=== PATIENT | male | born 1955 | race African-American/Black ===

== ENCOUNTER 2017-08-13 13:17 | Inpatient (IN) | payer OTHER ==
[2017-08-13 14:28] VITALS: BMI 25.0
--- NOTE | 2017-08-13 17:05 | HP ---
CIWA Score - CIWA Score Nausea/Vomitin-Mild Nausea/No Vomiting Muscle Tremors: 4-Moderate,w/Arms Extend Anxiety: 4-Mod. Anxious/Guarded Agitation: 4-Moderately Restless Paroxysmal Sweats: 1-Minimal Palms Moist Orientation: 2-Disoriented Date<2 days Tacttile Disturbances: 1-Very Mild Itch/Numbness Auditory Disturbances: 0-None Visual Disturbances: 0-None Headache: 0-None Present CIWA-Ar Total Score: 17 Admission ROS S - HPI Chief Complaint: withdrawal sx provider called [phone] for antivirus medication delivery as per pharmacist that long distance can not be done case discuss with the patient that assistance living facility may possible case discussed with part care pharmacist that due to compliance that the patient may continue using part care supply Allergies/Adverse Reactions: Allergies Allergy/AdvReac Type Severity Reaction Status Date / Time No Known Allergies Allergy Verified 08/13/17 14:57 History of Present Illness: 61 years old male wtih long history of alcohol nicotine dependence on methadone 160 mg po daily has hypertension, diabetes hiv positive ppd asthma and depression is admitted to detox Exam Limitations: No Limitations - Ebola screening Have you traveled outside of the country in the last 21 days: No Have you had contact with anyone from an Ebola affected area: No Have you been sick,other than usual withdrawal symptoms: No Do you have a fever: No - Review of Systems Constitutional: Changes in sleep, Weight Stable EENT: reports: Cataracts (both eyes), Blurred Vision (glaucoma both eyes), Dental Problems (multiple teeth missing) Respiratory: reports: No Symptoms reported Cardiac: reports: No Symptoms Reported GI: reports: Nausea, Poor Fluid Intake, Abdominal cramping : reports: No Symptoms Reported Musculoskeletal: reports: Joint Pain (left hip feet) Integumentary: reports: Other (calluses both feet has appointment with his manager commission) Neuro: reports: Tremors Endocrine: reports: No Symptoms Reported Hematology: reports: No Symptoms Reported Psychiatric: reports: Judgement Intact, Anxious, Depressed Other Systems: Reviewed and Negative Patient History - Patient Medical History Hx Anemia: No Hx Asthma: Yes Hx Chronic Obstructive Pulmonary Disease (COPD): No Hx Cancer: No Hx Cardiac Disorders: No Hx Congestive Heart Failure: No Hx Hypertension: Yes Hx Hypercholesterolemia: Yes Hx Pacemaker: No HX Cerebrovascular Accident: No Hx Seizures: No Hx Dementia: No Hx Diabetes: Yes Hx Gastrointestinal Disorders: No Hx Liver Disease: No Hx Genitourinary Disorders: No Hx Sexually Transmitted Disorders: Yes (GC at young age) Hx Renal Disease (ESRD): No Hx Thyroid Disease: No Hx Human Immunodeficiency Virus (HIV): Yes (1988) Hx Hepatitis C: Yes (treated) Hx Depression: Yes Hx Suicide Attempt: No Hx Bipolar Disorder: No Hx Schizophrenia: No - Patient Surgical History Past Surgical History: Yes Hx Neurologic Surgery: No Hx Cataract Extraction: No Hx Cardiac Surgery: No Hx Lung Surgery: No Hx Breast Surgery: No Hx Breast Biopsy: No Hx Abdominal Surgery: Yes (stomach ulcer 1979) Hx Appendectomy: No Hx Cholecystectomy: No Hx Genitourinary Surgery: No Hx Orthopedic Surgery: Yes (lt hip replacement-1980) Anesthesia Reaction: No - PPD History Previous Implant?: Yes Documented Results: Positive w/o proof Implanted On Prior [facility] Admission?: No PPD to be Administered?: No - Smoking Cessation Smoking history: Current every day smoker Have you smoked in the past 12 months: Yes Aproximately how many cigarettes per day: 10 Cigars Per Day: 0 Hx Chewing Tobacco Use: No Initiated information on smoking cessation: Yes 'Breaking Loose' booklet given: 08/13/17 - Substance & Tx. History Hx Alcohol Use: Yes Hx Substance Use: No Substance Use Type: Alcohol, Heroin Hx Substance Use Treatment: Yes (05/2017 ) - Substances Abused Alcohol Route: Oral Frequency: Daily Amount used: vodka(1/5) Age of first use: 14 Date of Last Use: 08/13/17 Family Disease History - Family Disease History Family Disease History: Diabetes: Mother, Sister, Heart Disease: Father ( ), Mother, Respiratory: Mother, Brother, Other: Father Admission Physical Exam S - Vital Signs Vital Signs: Vital Signs - 24 hr 08/13/17 14:24 Temperature 98.3 F Pulse Rate 81 Respiratory 18 Rate Blood Pressure 160/131 - Physical General Appearance: Yes: Appropriately Dressed, Moderate Distress, Tremorous, Irritable, Sweating, Anxious HEENTM: Yes: Hearing grossly Normal, Normal ENT Inspection, Normocephalic, Normal Voice Respiratory: Yes: Chest Non-Tender, Lungs Clear, Normal Breath Sounds, No Respiratory Distress, No Accessory Muscle Use Neck: Yes: Supple, Trachea in good position Breast: Yes: Breasts Symetrical Cardiology: Yes: Regular Rhythm, Regular Rate, S1, S2 Abdominal: Yes: Normal Bowel Sounds, Non Tender, Soft Genitourinary: Yes: Within Normal Limits Back: Yes: Normal Inspection Musculoskeletal: Yes: Gait Steady (cane), Back pain, Muscle Pain (left hip) Extremities: Yes: Normal Inspection, Normal Range of Motion, Non-Tender, Tremors Neurological: Yes: Alert, Motor Strength 5/5, Normal Response, Depressed Affect Integumentary: Yes: Warm Lymphatic: Yes: Within Normal Limits - Diagnostic (1) Alcohol dependence with uncomplicated withdrawal Current Visit: Yes Status: Acute (2) Asthma Current Visit: Yes Status: Chronic Qualifiers: Asthma severity: mild Asthma persistence: intermittent Asthma complication type: with status asthmaticus Qualified Code(s): J45.22 - Mild intermittent asthma with status asthmaticus (3) Nicotine dependence Current Visit: Yes Status: Acute Qualifiers: Nicotine product type: cigarettes Substance use status: in withdrawal Qualified Code(s): F17.213 - Nicotine dependence, cigarettes, with withdrawal (4) Methadone maintenance therapy patient Current Visit: Yes Status: Chronic Comment: 160 mg po daily verification pending (5) Hypertension Current Visit: Yes Status: Chronic Qualifiers: Hypertension type: essential hypertension Qualified Code(s): I10 - Essential (primary) hypertension (6) Diabetes mellitus type II, controlled Current Visit: Yes Status: Chronic Qualifiers: Diabetes mellitus complication status: with diabetic arthropathy Diabetes mellitus terminal gauger insulin use: with [facility] use (7) HIV (human immunodeficiency virus infection) Current Visit: Yes Status: Chronic Comment: no medication with the patient call (8) Glaucoma Current Visit: Yes Status: Acute Qualifiers: Glaucoma type: unspecified Laterality: bilateral Qualified Code(s): H40.9 - Unspecified glaucoma (9) Depression (emotion) Current Visit: Yes Status: Suspected Qualifiers: Depression Type: dysthymia Qualified Code(s): F34.1 - Dysthymic disorder (10) Hyperlipidemia Current Visit: Yes Status: Chronic Qualifiers: Hyperlipidemia type: pure hypercholesterolemia Qualified Code(s): E78.00 - Pure hypercholesterolemia, unspecified; E78.0 - Pure hypercholesterolemia Cleared for Admission [facility] - Detox or Rehab S Level of Care: Medically Managed Detox Regimen/Protocol: Librium S Breath Alcohol Content Breath Alcohol Content: 0 Urine Drug Screen - Results Drug Screen Negative: No Urine Drug Screen Results: BZO-Benzodiazepines, MTD-Methadone
[2017-08-13] MEDS ORDERED: P-EPHED 60MG/TRIPROLIDI 2.5MG TABLET PO PRN (17:13)
[2017-08-13] MEDS ORDERED: LOPERAMIDE HCL 2 MG CAPSULE PO PRN (17:13)
[2017-08-13] MEDS ORDERED: chlordiazePOXIDE HCL 25 MG CAPSULE PO PRN (17:13)
[2017-08-13] MEDS ORDERED: MAG HYDROX/AL HYDROX/SIMETH 30 ML UNIT-DOSE CUP PO PRN (17:13)
[2017-08-13] MEDS ORDERED: ACETAMINOPHEN 325 MG TABLET (FP) PO PRN (17:13)
[2017-08-13] MEDS ORDERED: guaiFENesin/D-METHORPHAN HB 10 ML UNIT-DOSE CUPS PO PRN (17:13)
[2017-08-13] MEDS ORDERED: IBUPROFEN 400 MG TABLET (FP) PO PRN (17:13)
[2017-08-13] MEDS ORDERED: NICOTINE POLACRILEX 2 MG GUM BC PRN (17:13)
[2017-08-13] MEDS ORDERED: MAGNESIUM CITRATE 300 ML BOTTLE PO PRN (17:13)
[2017-08-13] MEDS ORDERED: MENTHOL/PHENOL 1 EACH UD MM PRN (17:13)
[2017-08-13] MEDS ORDERED: MAGNESIUM HYDROX 2400MG/30ML ORAL SUSPENSION 30 ML CUP PO PRN (17:13)
[2017-08-13] MEDS ORDERED: ALBUTEROL SO4 18 GM HFA INHALER IH PRN (17:38)
[2017-08-13] MEDS: LISINOPRIL 20 MG TABLET (FP) PO SCH (19:39)
[2017-08-13] MEDS: THIAMINE HCL 100 MG TABLET (FP) PO SCH (22:31)
[2017-08-13] MEDS: ATORVASTATIN CA 40 MG TABLET (FP) PO SCH (22:31)
[2017-08-13] MEDS: INSULIN DETEMIR 100 UNITS/ML MDV SQ SCH (22:31)
[2017-08-13] MEDS: chlordiazePOXIDE HCL 25 MG CAPSULE PO SCH (22:31)
[2017-08-13] MEDS: LATANOPROST 0.005% OPHTH SOLN 2.5ML BOTTLE OU SCH (22:32)
[2017-08-13] MEDS: INSULIN SLIDING SCALE (NOVOLOG) 1 VIAL SQ SCH (22:32)
[2017-08-13 23:05] LABS: URINE APPEARANCE CLEAR; URINE BILIRUBIN NEGATIVE (NEGATIVE); URINE BLOOD NEGATIVE (NEGATIVE); URINE COLOR YELLOW; URINE GLUCOSE (UA) NEGATIVE (NEGATIVE); URINE KETONE NEGATIVE (NEGATIVE); URINE LEUK ESTERASE TRACE (NEGATIVE); URINE NITRITE NEGATIVE (NEGATIVE); URINE UROBILINOGEN NEGATIVE mg/dL (0.2-1.0)
[2017-08-13 23:11] LABS: URINE PROTEIN 2+ (NEGATIVE)
[2017-08-14 00:15] LABS: URINE HYALINE CAST 1 /lpf
[2017-08-14] MEDS: chlordiazePOXIDE HCL 25 MG CAPSULE PO SCH ×4 (05:47→22:36)
[2017-08-14] MEDS: metFORMIN HCL 500 MG TABLET (FP) PO SCH ×2 (06:17→17:40)
[2017-08-14] MEDS: INSULIN SLIDING SCALE (NOVOLOG) 1 VIAL SQ SCH ×4 (06:18→23:16)
[2017-08-14] MEDS ORDERED: METHADONE HCL 40 MG DISPERSABLE TABLET PO ONE (08:45)
[2017-08-14] MEDS ORDERED: METHADONE HCL 40 MG DISPERSABLE TABLET ONE (08:51)
[2017-08-14] MEDS: INSULIN (NOVOLOG MIX 70/30) 100 UNITS/ML MDV SQ SCH ×2 (08:59→18:09)
[2017-08-14 10:04] LABS: HEMATOCRIT 41.3 % (35.4-49); HEMOGLOBIN 13.2 GM/dL (11.7-16.9); MCH 30.9 pg (25.7-33.7); MCHC 31.8 g/dl (32.0-35.9); PLATELET COUNT 178 K/MM3 (134-434); RBC 4.26 M/mm3 (4.00-5.60); RDW 15.1 % (11.9-15.9); WHITE BLOOD COUNT 3.8 K/mm3 (4.0-10.0)
[2017-08-14] MEDS: EMTRICITABINE/TENOFOV ALAFENAM (DESCOVY) TABLET PO SCH (10:12)
[2017-08-14] MEDS: LISINOPRIL 20 MG TABLET (FP) PO SCH (10:12)
[2017-08-14] MEDS: DOLUTEGRAVIR SODIUM 50 MG TABLET PO SCH (10:12)
[2017-08-14] MEDS: PRENATAL VITAMINS W/ FOLIC ACID TABLET (FP) PO SCH (10:13)
[2017-08-14] MEDS: NICOTINE 14 MG/24 HOURS TOPICAL PATCH TD SCH (10:13)
[2017-08-14 10:18] LABS: ANION GAP 5 (8-16); BLOOD UREA NITROGEN 18 mg/dL (7-18); CALCIUM 8.4 mg/dL (8.5-10.1); CHLORIDE 101 mmol/L (98-107); CO2 32 mmol/L (21-32); GLUCOSE,RANDOM 85 mg/dL (74-106); SODIUM 138 mmol/L (136-145)
[2017-08-14 10:21] LABS: ALK PHOS 132 U/L (45-117); BILIRUBIN,TOTAL 0.9 mg/dL (0.2-1.0); SGOT/AST 51 U/L (15-37); SGPT/ALT 48 U/L (12-78); TOT PROT 6.6 g/dl (6.4-8.2)
--- NOTE | 2017-08-14 11:03 | CONSULT ---
[facility] Psychiatric Consult - Data Date of interview: 08/14/17 Admission source: [facility] Identifying data: Pt. is a 61 year old male, single, without kids and on disability. This is patient's first admission to [facility]. Pt. admitted to for alcohol dependence. Substance Abuse History: Following information confirmed with Mr. Serrano: Smoking Cessation. Smoking history: Current every day smoker. Have you smoked in the past 12 months: Yes. Aproximately how many cigarettes per day: 10. Cigars Per Day: 0. Hx Chewing Tobacco Use: No. Initiated information on smoking cessation: Yes. 'Breaking Loose' booklet given: 08/13/17. - Substance & Tx. History. Hx Alcohol Use: Yes. Hx Substance Use: No. Substance Use Type : Alcohol, Heroin. Hx Substance Use Treatment: Yes (05/2017 ). - Substances Abused. Alcohol. Route: Oral. Frequency: Daily. Amount used: vodka(08/07). Age of first use: 14. Date of Last Use: 08/13/17 Medical History: Asthma, hypertension, hypercholesterolemia, diabetes, Hep C ( treated), HIV, Hip replacement (1980), Abdominal surgery for stomach ulcer. Psychiatric History: Pt. denies h/o psychiatric hospitalizations, suicide attempts, and OPC. Physical/Sexual Abuse/Trauma History: Denies. Mental Status Exam - Mental Status Exam Alert and Oriented to: Time, Place, Person Cognitive Function: Good Patient Appearance: Well Groomed Mood: Hopeful Affect: Appropriate Patient Behavior: Appropriate, Cooperative Speech Pattern: Clear, Appropriate Voice Loudness: Normal Thought Process: Goal Oriented Thought Disorder: Not Present Hallucinations: Denies Suicidal Ideation: Denies Homicidal Ideation: Denies Insight/Judgement: Poor Sleep: Fair Appetite: Good, Fair Muscle strength/Tone: Normal Gait/Station: Other (Pt. ambulates with a cane.) Psychiatric Findings - Problem List ([place] 1, 2,3) (1) Alcohol dependence with uncomplicated withdrawal Current Visit: Yes Status: Acute (2) Nicotine dependence Current Visit: Yes Status: Acute Qualifiers: Nicotine product type: cigarettes Substance use status: in withdrawal Qualified Code(s): F17.213 - Nicotine dependence, cigarettes, with withdrawal (3) Methadone maintenance therapy patient Current Visit: Yes Status: Chronic Comment: 160 mg po daily verification pending - Initial Treatment Plan Initial Treatment Plan: Psychoeducation provided. Detoxification in progress. Observation.
--- NOTE | 2017-08-14 12:35 | PN ---
S CIWA - CIWA Score Nausea/Vomitin-No Nausea/No Vomiting Muscle Tremors: 4-Moderate,w/Arms Extend Anxiety: 3 Agitation: 3 Paroxysmal Sweats: 3 Orientation: 0-Oriented Tacttile Disturbances: 0-None Auditory Disturbances: 0-None Visual Disturbances: 0-None Headache: 0-None Present CIWA-Ar Total Score: 13 S Progress Note (SOAP) Subjective: shakes sweats interrupted sleep body aches agitation Objective: 08/14/17 12:35 Vital Signs Temperature 98.0 F 08/14/17 10:36 Pulse Rate 67 08/14/17 10:36 Respiratory Rate 18 08/14/17 10:36 Blood Pressure 141/77 08/14/17 10:36 O2 Sat by Pulse Oximetry (%) Laboratory Tests 08/13/17 08/13/17 08/14/17 21:00 22:30 05:46 WBC RBC Hgb Hct MCV MCH MCHC RDW Plt Count MPV Sodium Potassium Chloride Carbon Dioxide Anion Gap BUN Creatinine Creat Clearance w eGFR POC Glucometer 156 71 Random Glucose Calcium Total Bilirubin AST ALT Alkaline Phosphatase Total Protein Albumin Urine Color Yellow Urine Appearance Clear Urine pH 7.0 Ur Specific [place] 1.018 Urine Protein 2+ H Urine Glucose (UA) Negative Urine Ketones Negative Urine Blood Negative Urine Nitrite Negative Urine Bilirubin Negative Urine Urobilinogen Negative Ur Leukocyte Esterase Trace Urine WBC (Auto) <1 Urine RBC (Auto) 1 Hyaline Casts 1 08/14/17 08/14/17 08/14/17 07:30 07:30 08:56 WBC 3.8 L RBC 4.26 Hgb 13.2 Hct 41.3 MCV 97.0 H MCH 30.9 MCHC 31.8 L RDW 15.1 Plt Count 178 MPV 9.0 Sodium 138 Potassium 4.0 Chloride 101 Carbon Dioxide 32 Anion Gap 5 L BUN 18 Creatinine 1.0 Creat Clearance w eGFR > 60 POC Glucometer 135 Random Glucose 85 Calcium 8.4 L Total Bilirubin 0.9 AST 51 H ALT 48 Alkaline Phosphatase 132 H Total Protein 6.6 Albumin 3.0 L Urine Color Urine Appearance Urine pH Ur Specific [place] Urine Protein Urine Glucose (UA) Urine Ketones Urine Blood Urine Nitrite Urine Bilirubin Urine Urobilinogen Ur Leukocyte Esterase Urine WBC (Auto) Urine RBC (Auto) Hyaline Casts 08/14/17 11:41 WBC RBC Hgb Hct MCV MCH MCHC RDW Plt Count MPV Sodium Potassium Chloride Carbon Dioxide Anion Gap BUN Creatinine Creat Clearance w eGFR POC Glucometer 75 Random Glucose Calcium Total Bilirubin AST ALT Alkaline Phosphatase Total Protein Albumin Urine Color Urine Appearance Urine pH Ur Specific [place] Urine Protein Urine Glucose (UA) Urine Ketones Urine Blood Urine Nitrite Urine Bilirubin Urine Urobilinogen Ur Leukocyte Esterase Urine WBC (Auto) Urine RBC (Auto) Hyaline Casts aaox3 ambulating no acute distress Assessment: 08/14/17 12:42 withdrawal sx Plan: continue detox increase fluids
[2017-08-14] MEDS ORDERED: INSULIN (NOVOLOG MIX 70/30) 100 UNITS/ML MDV SQ ONE (16:54)
[2017-08-14] MEDS: THIAMINE HCL 100 MG TABLET (FP) PO SCH (22:35)
[2017-08-14] MEDS: LATANOPROST 0.005% OPHTH SOLN 2.5ML BOTTLE OU SCH (22:35)
[2017-08-14] MEDS: ATORVASTATIN CA 40 MG TABLET (FP) PO SCH (22:35)
[2017-08-14] MEDS: INSULIN DETEMIR 100 UNITS/ML MDV SQ SCH (22:35)
[2017-08-15] MEDS: METHADONE HCL 40 MG DISPERSABLE TABLET PO SCH (06:03)
[2017-08-15] MEDS: chlordiazePOXIDE HCL 25 MG CAPSULE PO SCH ×3 (06:03→17:31)
[2017-08-15] MEDS: INSULIN (NOVOLOG MIX 70/30) 100 UNITS/ML MDV SQ SCH ×2 (08:47→17:31)
[2017-08-15] MEDS: INSULIN SLIDING SCALE (NOVOLOG) 1 VIAL SQ SCH ×4 (08:47→21:47)
[2017-08-15] MEDS: metFORMIN HCL 500 MG TABLET (FP) PO SCH ×2 (11:27→17:31)
[2017-08-15] MEDS: PRENATAL VITAMINS W/ FOLIC ACID TABLET (FP) PO SCH (11:27)
[2017-08-15] MEDS: LISINOPRIL 20 MG TABLET (FP) PO SCH (11:27)
[2017-08-15] MEDS: EMTRICITABINE/TENOFOV ALAFENAM (DESCOVY) TABLET PO SCH (11:57)
[2017-08-15] MEDS: DOLUTEGRAVIR SODIUM 50 MG TABLET PO SCH (11:57)
--- NOTE | 2017-08-15 11:58 | PN ---
S CIWA - CIWA Score Nausea/Vomitin Muscle Tremors: 3 Anxiety: 3 Agitation: 3 Paroxysmal Sweats: 2 Orientation: 0-Oriented Tacttile Disturbances: 0-None Auditory Disturbances: 0-None Visual Disturbances: 0-None Headache: 0-None Present CIWA-Ar Total Score: 13 [facility] Progress Note (SOAP) Subjective: tremors interupted sleep anxious Objective: 08/15/17 11:54 Last Vital Signs Temp Pulse Resp BP Pulse Ox 98.1 F 66 18 146/96 08/15/17 10:33 08/15/17 10:33 08/15/17 10:33 08/15/17 10:33 Laboratory Last Values WBC 3.8 K/mm3 (4.0-10.0) L 08/14/17 07:30 RBC 4.26 M/mm3 (4.00-5.60) 08/14/17 07:30 Hgb 13.2 GM/dL (11.7-16.9) 08/14/17 07:30 Hct 41.3 % (35.4-49) 08/14/17 07:30 MCV 97.0 fl (80-96) H 08/14/17 07:30 MCH 30.9 pg (25.7-33.7) 08/14/17 07:30 MCHC 31.8 g/dl (32.0-35.9) L 08/14/17 07:30 RDW 15.1 % (11.9-15.9) 08/14/17 07:30 Plt Count 178 K/MM3 (134-434) 08/14/17 07:30 MPV 9.0 fl (7.5-11.1) 08/14/17 07:30 Sodium 138 mmol/L (136-145) 08/14/17 07:30 Potassium 4.0 mmol/L (3.5-5.1) 08/14/17 07:30 Chloride 101 mmol/L (98-107) 08/14/17 07:30 Carbon Dioxide 32 mmol/L (21-32) 08/14/17 07:30 Anion Gap 5 (8-16) L 08/14/17 07:30 BUN 18 mg/dL (7-18) 08/14/17 07:30 Creatinine 1.0 mg/dL (0.7-1.3) 08/14/17 07:30 Creat Clearance w eGFR > 60 (>60) 08/14/17 07:30 POC Glucometer 96 UNITS (80-120) 08/15/17 08:45 Random Glucose 85 mg/dL (74-106) 08/14/17 07:30 Calcium 8.4 mg/dL (8.5-10.1) L 08/14/17 07:30 Total Bilirubin 0.9 mg/dL (0.2-1.0) 08/14/17 07:30 AST 51 U/L (15-37) H 08/14/17 07:30 ALT 48 U/L (12-78) 08/14/17 07:30 Alkaline Phosphatase 132 U/L (45-117) H 08/14/17 07:30 Total Protein 6.6 g/dl (6.4-8.2) 08/14/17 07:30 Albumin 3.0 g/dl (3.4-5.0) L 08/14/17 07:30 Urine Color Yellow 08/13/17 21:00 Urine Appearance Clear 08/13/17 21:00 Urine pH 7.0 (5.0-8.0) 08/13/17 21:00 Ur Specific [place] 1.018 (1.001-1.035) 08/13/17 21:00 Urine Protein 2+ (NEGATIVE) H 08/13/17 21:00 Urine Glucose (UA) Negative (NEGATIVE) 08/13/17 21:00 Urine Ketones Negative (NEGATIVE) 08/13/17 21:00 Urine Blood Negative (NEGATIVE) 08/13/17 21:00 Urine Nitrite Negative (NEGATIVE) 08/13/17 21:00 Urine Bilirubin Negative (NEGATIVE) 08/13/17 21:00 Urine Urobilinogen Negative mg/dL (0.2-1.0) 08/13/17 21:00 Ur Leukocyte Esterase Trace (NEGATIVE) 08/13/17 21:00 Urine WBC (Auto) <1 /hpf (3-5) 08/13/17 21:00 Urine RBC (Auto) 1 /hpf (0-3) 08/13/17 21:00 Hyaline Casts 1 /lpf 08/13/17 21:00 RPR Titer Nonreactive (NONREACTIVE) 08/14/17 07:30 labs noted, POC glucose 96; a.m dose of insulin held Assessment: 08/15/17 11:56 withdrawal symptoms no signs and symptoms of hypo/hyperglycemia no acute distress noted Plan: continue detox resume DM meds as ordered
[2017-08-15] MEDS ORDERED: INSULIN (NOVOLOG) ASPART 100 UNITS/ML 10ML VIAL ONE (12:01)
[2017-08-15] MEDS: NICOTINE 14 MG/24 HOURS TOPICAL PATCH TD SCH (12:04)
--- NOTE | 2017-08-15 17:11 | EKG ---
Test Reason : Blood Pressure : / mmHG Vent. Rate : 066 BPM Atrial Rate : 066 BPM P-R Int : 174 ms QRS Dur : 096 ms QT Int : 440 ms P-R-T Axes : 060 018 065 degrees QTc Int : 461 ms NORMAL SINUS RHYTHM NONSPECIFIC T WAVE ABNORMALITY ABNORMAL ECG NO PREVIOUS ECGS AVAILABLE Confirmed by KRISTI FRY MD ([id number]) on 08/15/2017 5:11:27 PM Referred By: Confirmed By:KRISTI FRY MD
[2017-08-15] MEDS: INSULIN DETEMIR 100 UNITS/ML MDV SQ SCH (21:46)
[2017-08-15] MEDS: ATORVASTATIN CA 40 MG TABLET (FP) PO SCH (22:05)
[2017-08-15] MEDS: chlordiazePOXIDE 5 MG CAPSULE PO SCH (22:05)
[2017-08-15] MEDS: THIAMINE HCL 100 MG TABLET (FP) PO SCH (22:06)
[2017-08-15] MEDS: LATANOPROST 0.005% OPHTH SOLN 2.5ML BOTTLE OU SCH (22:07)
[2017-08-16] MEDS: chlordiazePOXIDE 5 MG CAPSULE PO SCH ×3 (05:38→17:43)
[2017-08-16] MEDS: METHADONE HCL 40 MG DISPERSABLE TABLET PO SCH (05:39)
[2017-08-16] MEDS: INSULIN SLIDING SCALE (NOVOLOG) 1 VIAL SQ SCH ×4 (08:01→23:10)
[2017-08-16] MEDS: metFORMIN HCL 500 MG TABLET (FP) PO SCH ×2 (08:01→17:45)
[2017-08-16] MEDS: INSULIN (NOVOLOG MIX 70/30) 100 UNITS/ML MDV SQ SCH ×2 (08:35→17:46)
[2017-08-16] MEDS: LISINOPRIL 20 MG TABLET (FP) PO SCH (10:19)
[2017-08-16] MEDS: DOLUTEGRAVIR SODIUM 50 MG TABLET PO SCH (10:19)
[2017-08-16] MEDS: PRENATAL VITAMINS W/ FOLIC ACID TABLET (FP) PO SCH (10:19)
[2017-08-16] MEDS: NICOTINE 14 MG/24 HOURS TOPICAL PATCH TD SCH (10:20)
[2017-08-16] MEDS: EMTRICITABINE/TENOFOV ALAFENAM (DESCOVY) TABLET PO SCH (10:20)
--- NOTE | 2017-08-16 12:22 | PN ---
S Progress Note (SOAP) Subjective: mild tremor sweat alert, Objective: 08/16/17 12:21 Vital Signs Temperature 98.1 F 08/16/17 10:00 Pulse Rate 73 08/16/17 10:00 Respiratory Rate 18 08/16/17 10:00 Blood Pressure 122/78 08/16/17 10:00 O2 Sat by Pulse Oximetry (%) Laboratory Last Values WBC 3.8 K/mm3 (4.0-10.0) L 08/14/17 07:30 RBC 4.26 M/mm3 (4.00-5.60) 08/14/17 07:30 Hgb 13.2 GM/dL (11.7-16.9) 08/14/17 07:30 Hct 41.3 % (35.4-49) 08/14/17 07:30 MCV 97.0 fl (80-96) H 08/14/17 07:30 MCH 30.9 pg (25.7-33.7) 08/14/17 07:30 MCHC 31.8 g/dl (32.0-35.9) L 08/14/17 07:30 RDW 15.1 % (11.9-15.9) 08/14/17 07:30 Plt Count 178 K/MM3 (134-434) 08/14/17 07:30 MPV 9.0 fl (7.5-11.1) 08/14/17 07:30 Sodium 138 mmol/L (136-145) 08/14/17 07:30 Potassium 4.0 mmol/L (3.5-5.1) 08/14/17 07:30 Chloride 101 mmol/L (98-107) 08/14/17 07:30 Carbon Dioxide 32 mmol/L (21-32) 08/14/17 07:30 Anion Gap 5 (8-16) L 08/14/17 07:30 BUN 18 mg/dL (7-18) 08/14/17 07:30 Creatinine 1.0 mg/dL (0.7-1.3) 08/14/17 07:30 Creat Clearance w eGFR > 60 (>60) 08/14/17 07:30 POC Glucometer 101 UNITS (80-120) 08/16/17 11:27 Random Glucose 85 mg/dL (74-106) 08/14/17 07:30 Calcium 8.4 mg/dL (8.5-10.1) L 08/14/17 07:30 Total Bilirubin 0.9 mg/dL (0.2-1.0) 08/14/17 07:30 AST 51 U/L (15-37) H 08/14/17 07:30 ALT 48 U/L (12-78) 08/14/17 07:30 Alkaline Phosphatase 132 U/L (45-117) H 08/14/17 07:30 Total Protein 6.6 g/dl (6.4-8.2) 08/14/17 07:30 Albumin 3.0 g/dl (3.4-5.0) L 08/14/17 07:30 Urine Color Yellow 08/13/17 21:00 Urine Appearance Clear 08/13/17 21:00 Urine pH 7.0 (5.0-8.0) 08/13/17 21:00 Ur Specific [place] 1.018 (1.001-1.035) 08/13/17 21:00 Urine Protein 2+ (NEGATIVE) H 08/13/17 21:00 Urine Glucose (UA) Negative (NEGATIVE) 08/13/17 21:00 Urine Ketones Negative (NEGATIVE) 08/13/17 21:00 Urine Blood Negative (NEGATIVE) 08/13/17 21:00 Urine Nitrite Negative (NEGATIVE) 08/13/17 21:00 Urine Bilirubin Negative (NEGATIVE) 08/13/17 21:00 Urine Urobilinogen Negative mg/dL (0.2-1.0) 08/13/17 21:00 Ur Leukocyte Esterase Trace (NEGATIVE) 08/13/17 21:00 Urine WBC (Auto) <1 /hpf (3-5) 08/13/17 21:00 Urine RBC (Auto) 1 /hpf (0-3) 08/13/17 21:00 Hyaline Casts 1 /lpf 08/13/17 21:00 RPR Titer Nonreactive (NONREACTIVE) 08/14/17 07:30 lab noted Assessment: 08/16/17 12:21 mild withdrawal sx Plan: continue detox
[2017-08-16] MEDS: INSULIN DETEMIR 100 UNITS/ML MDV SQ SCH (22:03)
[2017-08-16] MEDS: chlordiazePOXIDE HCL 10 MG CAPSULE PO SCH (22:03)
[2017-08-16] MEDS: THIAMINE HCL 100 MG TABLET (FP) PO SCH (22:04)
[2017-08-16] MEDS: ATORVASTATIN CA 40 MG TABLET (FP) PO SCH (22:04)
[2017-08-16] MEDS: LATANOPROST 0.005% OPHTH SOLN 2.5ML BOTTLE OU SCH (23:11)
[2017-08-17] MEDS: chlordiazePOXIDE HCL 10 MG CAPSULE PO SCH (05:55)
[2017-08-17] MEDS: METHADONE HCL 40 MG DISPERSABLE TABLET PO SCH (05:55)
[2017-08-17] MEDS: metFORMIN HCL 500 MG TABLET (FP) PO SCH (07:00)
[2017-08-17] MEDS: INSULIN SLIDING SCALE (NOVOLOG) 1 VIAL SQ SCH (07:00)
[2017-08-17] MEDS: EMTRICITABINE/TENOFOV ALAFENAM (DESCOVY) TABLET PO SCH (09:51)
[2017-08-17] MEDS: PRENATAL VITAMINS W/ FOLIC ACID TABLET (FP) PO SCH (09:51)
[2017-08-17] MEDS: INSULIN (NOVOLOG MIX 70/30) 100 UNITS/ML MDV SQ SCH (09:51)
[2017-08-17] MEDS: DOLUTEGRAVIR SODIUM 50 MG TABLET PO SCH (09:52)
[2017-08-17] MEDS: LISINOPRIL 20 MG TABLET (FP) PO SCH (09:53)
--- NOTE | 2017-08-17 10:21 | DS ---
[facility] Detox Discharge Summary Admission Date: 08/13/17 Discharge Date: 08/17/17 - History Present History: Alcohol Dependence, MMTP Additional Comments: FOLLOW UP WITH AFTER CARE PROGRAM ARRANGEMENT Pertinent Past History: HYPERTENSION TYPE 2 DM HIV GLAUCOMA HYPERCHOLESTEROLEMIA - Physical Exam Results Vital Signs: Vital Signs Temperature 99.1 F 08/17/17 06:00 Pulse Rate 60 08/17/17 06:00 Respiratory Rate 18 08/17/17 06:00 Blood Pressure 162/77 08/17/17 06:00 O2 Sat by Pulse Oximetry (%) - Treatment Hospital Course: Detox Protocol Followed, Detoxed Safely, Responded well, Discharged Condition Good Patient has Accepted a Rehab Referral to: DECLINED - Medication Discharge Medications: Ambulatory Orders Albuterol Sulfate Inhaler - [Ventolin Hfa Inhaler -] 2 puff IH Q4H PRN 08/13/17 Atorvastatin Ca [Lipitor] 40 mg PO HS 08/13/17 Dolutegravir Sodium [Tivicay] 50 mg PO DAILY 08/13/17 Emtricitabine/Tenofov Alafenam [Descovy 200-25 mg Tablet (Nf)] 1 each PO DAILY 08/13/17 Insulin Glargine,Hum.rec.anlog [Lantus] 30 unit SQ HS 08/13/17 Insulin Lispro [Humalog] 20 unit SQ BIDAC 08/13/17 Latanoprost 0.005% Eye Drops [Xalatan 0.005% Eye Drops -] 1 drop OP HS 08/13/17 Lisinopril 20 mg PO DAILY 08/13/17 Metformin HCl [Glucophage -] 500 mg PO BID 08/13/17 - Diagnosis (1) Alcohol dependence with uncomplicated withdrawal Current Visit: Yes Status: Acute (2) Nicotine dependence Current Visit: Yes Status: Acute Qualifiers: Nicotine product type: cigarettes Substance use status: in withdrawal Qualified Code(s): F17.213 - Nicotine dependence, cigarettes, with withdrawal (3) Asthma Current Visit: Yes Status: Chronic Qualifiers: Asthma severity: mild Asthma persistence: intermittent Asthma complication type: unspecified Qualified Code(s): J45.20 - Mild intermittent asthma, uncomplicated (4) Diabetes mellitus type II, controlled Current Visit: Yes Status: Chronic Qualifiers: Diabetes mellitus complication status: without complication Diabetes mellitus [facility] insulin use: with superintendent terminal use Qualified Code(s): E11.9 - Type 2 diabetes mellitus without complications; Z79.4 - local company intermodal truck driver (current) use of insulin; Z79.4 - local company intermodal truck driver (current) use of insulin; Z79.4 - local company intermodal truck driver ( current) use of insulin; Z79.4 - local company intermodal truck driver (current) use of insulin (5) Glaucoma Current Visit: Yes Status: Chronic Qualifiers: Glaucoma type: unspecified Laterality: bilateral Qualified Code(s): H40.9 - Unspecified glaucoma (6) HIV (human immunodeficiency virus infection) Current Visit: Yes Status: Chronic (7) Hyperlipidemia Current Visit: Yes Status: Chronic Qualifiers: Hyperlipidemia type: pure hypercholesterolemia Qualified Code(s): E78.00 - Pure hypercholesterolemia, unspecified; E78.0 - Pure hypercholesterolemia (8) Hypertension Current Visit: Yes Status: Chronic Qualifiers: Hypertension type: essential hypertension Qualified Code(s): I10 - Essential (primary) hypertension (9) Methadone maintenance therapy patient Current Visit: Yes Status: Chronic - AMA Did Patient Leave Against Medical Advice: No
[2017-08-17 11:51] VITALS: BP 140/83; PULSE 73; TEMP 98
== END 2017-08-17 10:25 | disposition home or self-care (01) | DRG 773 ==
LOC: YASAS 13:17 → Y6N 15:49
PROVIDERS: ADMIT Internal Medicine; ATTEND Internal Medicine
PROC: HZ2ZZZZ Detoxification Services for Substance Abuse Treatment (ICD-10-PCS; principal; 2017-08-13)
DX: F10.230 Alcohol dependence with withdrawal, uncomplicated (principal); F11.20 Opioid dependence, uncomplicated; F17.213 Nicotine dependence, cigarettes, with withdrawal; F34.1 Dysthymic disorder; I10 Essential (primary) hypertension; J45.20 Mild intermittent asthma, uncomplicated; E11.9 Type 2 diabetes mellitus without complications; H40.9 Unspecified glaucoma; Z21 Asymptomatic human immunodeficiency virus [HIV] infection status; E78.5 Hyperlipidemia, unspecified; Z87.438 Personal history of other diseases of male genital organs; Z96.642 Presence of left artificial hip joint; Z79.4 Long term (current) use of insulin
CPT/HCPCS: 36415; 71046-TC; 80053; 81003; 81015; 82962; 85027; 86593; 93005; 93010

== ENCOUNTER 2017-08-18 18:18 | Inpatient (IN) | payer OTHER ==
[2017-08-18] MEDS ORDERED: MAG HYDROX/AL HYDROX/SIMETH 30 ML UNIT-DOSE CUP PO PRN (22:47)
[2017-08-18] MEDS ORDERED: MAGNESIUM HYDROX 2400MG/30ML ORAL SUSPENSION 30 ML CUP PO PRN (22:47)
[2017-08-18] MEDS ORDERED: P-EPHED 60MG/TRIPROLIDI 2.5MG TABLET PO PRN (22:47)
[2017-08-18] MEDS ORDERED: LOPERAMIDE HCL 2 MG CAPSULE PO PRN (22:47)
[2017-08-18] MEDS ORDERED: ACETAMINOPHEN 325 MG TABLET (FP) PO PRN (22:47)
[2017-08-18] MEDS ORDERED: guaiFENesin/D-METHORPHAN HB 10 ML UNIT-DOSE CUPS PO PRN (22:47)
[2017-08-18] MEDS ORDERED: MAGNESIUM CITRATE 300 ML BOTTLE PO PRN (22:47)
[2017-08-18] MEDS ORDERED: MENTHOL/PHENOL 1 EACH UD MM PRN (22:47)
--- NOTE | 2017-08-18 22:47 | HP ---
[facility] Rehab Assess/Revision - Admission History Admitted to Rehab from: [facility] [place] Date of Admission to Rehab: 08/18/17 - Vital signs Vital Signs: Vital Signs Period Temp Pulse Resp BP Sys/[place] Pulse Ox Last 24 Hr 97.2 F 79 20 162/89 - Findings Detox History & Physical reviewed: Yes Concur with findings: Yes Comments/Additional Findings: TRANSFERRED FROM DETOX TO REHAB ADMISSION PER PROTOCOL
[2017-08-18] MEDS ORDERED: ALBUTEROL SO4 18 GM HFA INHALER IH PRN (22:49)
--- NOTE | 2017-08-18 22:49 | HP ---
[facility] Rehab Assess/Revision - Vital signs Vital Signs: Vital Signs Period Temp Pulse Resp BP Sys/[place] Pulse Ox Last 24 Hr 97.2 F 79 20 162/89 Inpatient Rehab Admission - Initial Determination Are CD services needed?: Yes Free of communicable disease: Yes Not in need of hospitalization: Yes - Rehab Admission Criteria Previous failed treatment: Yes Poor recovery environment: Yes Comorbidities: Yes Lacks judgement: No Patient is meeting Inpatient Rehab admission criteria:: Yes
[2017-08-18 23:17] VITALS: BMI 25.7
[2017-08-19] MEDS: IBUPROFEN 400 MG TABLET (FP) PO PRN (02:18)
[2017-08-19] MEDS: metFORMIN HCL 500 MG TABLET (FP) PO SCH ×2 (07:05→16:55)
[2017-08-19] MEDS: PRENATAL VITAMINS W/ FOLIC ACID TABLET (FP) PO SCH (10:25)
[2017-08-19] MEDS: METHADONE HCL 40 MG DISPERSABLE TABLET PO SCH (10:25)
[2017-08-19] MEDS: LISINOPRIL 20 MG TABLET (FP) PO SCH (10:25)
--- NOTE | 2017-08-19 13:30 | HP ---
Psychiatrist Admission - Data Date of interview: 08/19/17 Admission source: Ramon/Carmella Padilla Identifying data: This is the first [facility] admission for this 61 years old single Black male, unemployed with no source of income, domiciled Medical History: Significant for hypertension, hyperlipidemia, type 2 diabetes mellitus, bronchial asthma, HIV?AIDS, hepatitis C, PPD+, glaucoma and history of treatment for gonorrhea, surgery for gastricduodenal ulcer and orthosurgery for left hip replacement. Patient is on methadone 160 mg/day. Smokes 10 cigarettes daily Psychiatric History: Denies history of previous psychiatric treatment Physical/Sexual Abuse/Trauma History: Denies history og verbal, physical or sexual abuse as well as DV relationship Additional Comment: Reportss history of multiple previous arrests including Vital Signs: Vital Signs - 24 hr 08/18/17 08/19/17 08/19/17 21:06 03:30 07:23 Temperature 97.2 F L 98.2 F Pulse Rate 79 77 Respiratory 20 18 18 Rate Blood Pressure 162/89 144/83 08/19/17 09:25 Temperature Pulse Rate 70 Respiratory Rate Blood Pressure 148/77 Allergies/Adverse Reactions: Allergies Allergy/AdvReac Type Severity Reaction Status Date / Time No Known Allergies Allergy Verified 08/18/17 22:31 Date of last physical exam: 08/13/17 Concur with the findings of this exam: Yes - Substance Abuse/Tx History Hx Alcohol Use: Yes Hx Substance Use: No Substance Use Type: Alcohol (Started drinking alcohol at age 14, consumes a fifth of vodka daily. Last drank on 08/13/17) Hx Substance Use Treatment: Yes (Currently attends [facility]; 2 previous inpt detox & ) Mental Status Exam - Mental Status Exam Alert and Oriented to: Time, Place, Person Cognitive Function: Fair Patient Appearance: Well Groomed Mood: Hopeful, Euthymic Patient Behavior: Cooperative Speech Pattern: Clear Voice Loudness: Normal Thought Process: Intact, Goal Oriented Hallucinations: Denies Suicidal Ideation: Denies Homicidal Ideation: Denies Insight/Judgement: Fair Appetite: Good Muscle strength/Tone: Normal Gait/Station: Other (uses wheelchair as ambulatory aid) Psychiatric Findings - Problem List ([place] 1, 2,3) (1) Alcohol dependence Current Visit: Yes Status: Acute (2) Opioid dependence on agonist therapy Current Visit: Yes Status: Chronic (3) Nicotine dependence Current Visit: No Status: Chronic Qualifiers: Nicotine product type: cigarettes Substance use status: in withdrawal Qualified Code(s): F17.213 - Nicotine dependence, cigarettes, with withdrawal (4) Asthma Current Visit: No Status: Chronic Qualifiers: Asthma severity: mild Asthma persistence: intermittent Asthma complication type: unspecified Qualified Code(s): J45.20 - Mild intermittent asthma, uncomplicated (5) Diabetes mellitus type II, controlled Current Visit: No Status: Chronic Qualifiers: Diabetes mellitus complication status: without complication Diabetes mellitus terminal worker insulin use: with terminal worker use Qualified Code(s): E11.9 - Type 2 diabetes mellitus without complications; Z79.4 - [facility] (current) use of insulin; Z79.4 - [facility] (current) use of insulin; Z79.4 - [facility] ( current) use of insulin; Z79.4 - manager terminal (current) use of insulin (6) Glaucoma Current Visit: No Status: Chronic Qualifiers: Glaucoma type: unspecified Laterality: bilateral Qualified Code(s): H40.9 - Unspecified glaucoma (7) HIV (human immunodeficiency virus infection) Current Visit: No Status: Chronic Comment: no medication with the patient call (8) Hyperlipidemia Current Visit: No Status: Chronic Qualifiers: Hyperlipidemia type: pure hypercholesterolemia Qualified Code(s): E78.00 - Pure hypercholesterolemia, unspecified; E78.0 - Pure hypercholesterolemia (9) Hypertension Current Visit: No Status: Chronic Qualifiers: Hypertension type: essential hypertension Qualified Code(s): I10 - Essential (primary) hypertension - Initial Treatment Plan Initial Treatment Plan: Monitor progress
[2017-08-19] MEDS: INSULIN DETEMIR 100 UNITS/ML MDV SQ SCH (21:19)
[2017-08-19] MEDS: ATORVASTATIN CA 40 MG TABLET (FP) PO SCH (21:19)
[2017-08-19] MEDS: THIAMINE HCL 100 MG TABLET (FP) PO SCH (21:19)
[2017-08-20] MEDS: LATANOPROST 0.005% OPHTH SOLN 2.5ML BOTTLE OU SCH ×2 (01:28→21:31)
[2017-08-20] MEDS: METHADONE HCL 40 MG DISPERSABLE TABLET PO SCH (06:42)
[2017-08-20] MEDS: metFORMIN HCL 500 MG TABLET (FP) PO SCH ×2 (06:43→17:00)
[2017-08-20] MEDS: LISINOPRIL 20 MG TABLET (FP) PO SCH (10:26)
[2017-08-20] MEDS: PRENATAL VITAMINS W/ FOLIC ACID TABLET (FP) PO SCH (10:26)
[2017-08-20] MEDS: IBUPROFEN 400 MG TABLET (FP) PO PRN (10:27)
[2017-08-20] MEDS: THIAMINE HCL 100 MG TABLET (FP) PO SCH (21:25)
[2017-08-20] MEDS: ATORVASTATIN CA 40 MG TABLET (FP) PO SCH (21:26)
[2017-08-20] MEDS ORDERED: PT OWN MED DRAWER 7, Y5N ONE (21:28)
[2017-08-20] MEDS: INSULIN DETEMIR 100 UNITS/ML MDV SQ SCH (21:35)
[2017-08-21] MEDS: METHADONE HCL 40 MG DISPERSABLE TABLET PO SCH (06:33)
[2017-08-21] MEDS: metFORMIN HCL 500 MG TABLET (FP) PO SCH ×2 (07:35→17:02)
[2017-08-21] MEDS: PRENATAL VITAMINS W/ FOLIC ACID TABLET (FP) PO SCH (10:39)
[2017-08-21] MEDS: LISINOPRIL 20 MG TABLET (FP) PO SCH (10:39)
[2017-08-21] MEDS ORDERED: PT OWN MED DRAWER 7, Y5N ONE (17:11)
[2017-08-21] MEDS: ATORVASTATIN CA 40 MG TABLET (FP) PO SCH (21:06)
[2017-08-21] MEDS: THIAMINE HCL 100 MG TABLET (FP) PO SCH (21:06)
[2017-08-21] MEDS: INSULIN DETEMIR 100 UNITS/ML MDV SQ SCH (21:06)
[2017-08-21] MEDS: LATANOPROST 0.005% OPHTH SOLN 2.5ML BOTTLE OU SCH (21:07)
[2017-08-22] MEDS: METHADONE HCL 40 MG DISPERSABLE TABLET PO SCH (06:18)
[2017-08-22] MEDS: metFORMIN HCL 500 MG TABLET (FP) PO SCH ×3 (06:40→16:56)
[2017-08-22] MEDS: LISINOPRIL 20 MG TABLET (FP) PO SCH (10:27)
[2017-08-22] MEDS: PRENATAL VITAMINS W/ FOLIC ACID TABLET (FP) PO SCH (10:27)
[2017-08-22] MEDS: LATANOPROST 0.005% OPHTH SOLN 2.5ML BOTTLE OU SCH (21:11)
[2017-08-22] MEDS: THIAMINE HCL 100 MG TABLET (FP) PO SCH (21:11)
[2017-08-22] MEDS: ATORVASTATIN CA 40 MG TABLET (FP) PO SCH (21:11)
[2017-08-22] MEDS: INSULIN DETEMIR 100 UNITS/ML MDV SQ SCH (21:13)
[2017-08-23] MEDS: METHADONE HCL 40 MG DISPERSABLE TABLET PO SCH (06:13)
[2017-08-23] MEDS: metFORMIN HCL 500 MG TABLET (FP) PO SCH ×2 (07:03→16:53)
[2017-08-23] MEDS: LISINOPRIL 20 MG TABLET (FP) PO SCH (10:22)
[2017-08-23] MEDS: PRENATAL VITAMINS W/ FOLIC ACID TABLET (FP) PO SCH (10:22)
[2017-08-23] MEDS: ATORVASTATIN CA 40 MG TABLET (FP) PO SCH (21:14)
[2017-08-23] MEDS: LATANOPROST 0.005% OPHTH SOLN 2.5ML BOTTLE OU SCH (21:14)
[2017-08-23] MEDS: THIAMINE HCL 100 MG TABLET (FP) PO SCH (21:14)
[2017-08-23] MEDS: INSULIN DETEMIR 100 UNITS/ML MDV SQ SCH (21:15)
[2017-08-24] MEDS: metFORMIN HCL 500 MG TABLET (FP) PO SCH ×2 (06:25→17:00)
[2017-08-24] MEDS: METHADONE HCL 40 MG DISPERSABLE TABLET PO SCH (06:25)
[2017-08-24] MEDS: LISINOPRIL 20 MG TABLET (FP) PO SCH (10:08)
[2017-08-24] MEDS: PRENATAL VITAMINS W/ FOLIC ACID TABLET (FP) PO SCH (10:08)
[2017-08-24] MEDS: INSULIN DETEMIR 100 UNITS/ML MDV SQ SCH (21:33)
[2017-08-24] MEDS: ATORVASTATIN CA 40 MG TABLET (FP) PO SCH (21:33)
[2017-08-24] MEDS: THIAMINE HCL 100 MG TABLET (FP) PO SCH (21:33)
[2017-08-24] MEDS: LATANOPROST 0.005% OPHTH SOLN 2.5ML BOTTLE OU SCH (21:34)
[2017-08-25] MEDS: METHADONE HCL 40 MG DISPERSABLE TABLET PO SCH (06:46)
[2017-08-25] MEDS: metFORMIN HCL 500 MG TABLET (FP) PO SCH ×2 (08:05→16:58)
[2017-08-25] MEDS: PRENATAL VITAMINS W/ FOLIC ACID TABLET (FP) PO SCH (10:20)
[2017-08-25] MEDS: LISINOPRIL 20 MG TABLET (FP) PO SCH (10:20)
[2017-08-25] MEDS: ATORVASTATIN CA 40 MG TABLET (FP) PO SCH (21:46)
[2017-08-25] MEDS: THIAMINE HCL 100 MG TABLET (FP) PO SCH (21:46)
[2017-08-25] MEDS: INSULIN DETEMIR 100 UNITS/ML MDV SQ SCH (21:51)
[2017-08-25] MEDS: LATANOPROST 0.005% OPHTH SOLN 2.5ML BOTTLE OU SCH (21:52)
[2017-08-26] MEDS: METHADONE HCL 40 MG DISPERSABLE TABLET PO SCH (06:23)
[2017-08-26] MEDS: metFORMIN HCL 500 MG TABLET (FP) PO SCH ×2 (07:11→17:02)
[2017-08-26] MEDS: PRENATAL VITAMINS W/ FOLIC ACID TABLET (FP) PO SCH (10:25)
[2017-08-26] MEDS: LISINOPRIL 20 MG TABLET (FP) PO SCH (10:25)
[2017-08-26] MEDS: LATANOPROST 0.005% OPHTH SOLN 2.5ML BOTTLE OU SCH (21:14)
[2017-08-26] MEDS: ATORVASTATIN CA 40 MG TABLET (FP) PO SCH (21:14)
[2017-08-26] MEDS: THIAMINE HCL 100 MG TABLET (FP) PO SCH (21:14)
[2017-08-26] MEDS: INSULIN DETEMIR 100 UNITS/ML MDV SQ SCH (21:17)
[2017-08-27] MEDS: METHADONE HCL 40 MG DISPERSABLE TABLET PO SCH (06:30)
[2017-08-27] MEDS: metFORMIN HCL 500 MG TABLET (FP) PO SCH ×2 (08:14→16:51)
[2017-08-27] MEDS: PRENATAL VITAMINS W/ FOLIC ACID TABLET (FP) PO SCH (10:13)
[2017-08-27] MEDS: LISINOPRIL 20 MG TABLET (FP) PO SCH (10:13)
[2017-08-27] MEDS ORDERED: MINERAL OIL/PETROLAT/WATER TOPICAL CREAM 113 GM JAR TP PRN (12:09)
--- NOTE | 2017-08-27 12:34 | PN ---
[facility] Progress Note Note: decrease to20u insulin bid he has hypoglycemia
[2017-08-27] MEDS: ATORVASTATIN CA 40 MG TABLET (FP) PO SCH (21:50)
[2017-08-27] MEDS: THIAMINE HCL 100 MG TABLET (FP) PO SCH (21:50)
[2017-08-27] MEDS: INSULIN DETEMIR 100 UNITS/ML MDV SQ SCH (21:53)
[2017-08-27] MEDS: LATANOPROST 0.005% OPHTH SOLN 2.5ML BOTTLE OU SCH (22:00)
[2017-08-28] MEDS: METHADONE HCL 40 MG DISPERSABLE TABLET PO SCH (06:29)
[2017-08-28] MEDS: metFORMIN HCL 500 MG TABLET (FP) PO SCH ×2 (07:35→17:06)
[2017-08-28] MEDS: LISINOPRIL 20 MG TABLET (FP) PO SCH (10:36)
[2017-08-28] MEDS: PRENATAL VITAMINS W/ FOLIC ACID TABLET (FP) PO SCH (10:36)
[2017-08-28] MEDS: EMTRICITABINE/TENOFOV ALAFENAM (DESCOVY) TABLET PO SCH (14:06)
[2017-08-28] MEDS: DOLUTEGRAVIR SODIUM 50 MG TABLET PO SCH (14:07)
[2017-08-28] MEDS: THIAMINE HCL 100 MG TABLET (FP) PO SCH (21:53)
[2017-08-28] MEDS: ATORVASTATIN CA 40 MG TABLET (FP) PO SCH (21:53)
[2017-08-28] MEDS: INSULIN DETEMIR 100 UNITS/ML MDV SQ SCH (21:55)
[2017-08-28] MEDS: LATANOPROST 0.005% OPHTH SOLN 2.5ML BOTTLE OU SCH (21:55)
[2017-08-29] MEDS: METHADONE HCL 40 MG DISPERSABLE TABLET PO SCH (06:25)
[2017-08-29] MEDS: metFORMIN HCL 500 MG TABLET (FP) PO SCH ×2 (07:02→17:00)
[2017-08-29] MEDS: EMTRICITABINE/TENOFOV ALAFENAM (DESCOVY) TABLET PO SCH (10:04)
[2017-08-29] MEDS: LISINOPRIL 20 MG TABLET (FP) PO SCH (10:05)
[2017-08-29] MEDS: DOLUTEGRAVIR SODIUM 50 MG TABLET PO SCH (10:05)
[2017-08-29] MEDS: PRENATAL VITAMINS W/ FOLIC ACID TABLET (FP) PO SCH (10:05)
[2017-08-29] MEDS: ATORVASTATIN CA 40 MG TABLET (FP) PO SCH (22:09)
[2017-08-29] MEDS: INSULIN DETEMIR 100 UNITS/ML MDV SQ SCH (22:09)
[2017-08-29] MEDS: THIAMINE HCL 100 MG TABLET (FP) PO SCH (22:09)
[2017-08-29] MEDS: LATANOPROST 0.005% OPHTH SOLN 2.5ML BOTTLE OU SCH (22:37)
[2017-08-30] MEDS: METHADONE HCL 40 MG DISPERSABLE TABLET PO SCH (06:20)
[2017-08-30] MEDS: metFORMIN HCL 500 MG TABLET (FP) PO SCH ×2 (07:01→17:22)
[2017-08-30] MEDS: DOLUTEGRAVIR SODIUM 50 MG TABLET PO SCH (10:00)
[2017-08-30] MEDS: EMTRICITABINE/TENOFOV ALAFENAM (DESCOVY) TABLET PO SCH (10:01)
[2017-08-30] MEDS: PRENATAL VITAMINS W/ FOLIC ACID TABLET (FP) PO SCH (10:01)
[2017-08-30] MEDS: LISINOPRIL 20 MG TABLET (FP) PO SCH (10:01)
[2017-08-30] MEDS: ATORVASTATIN CA 40 MG TABLET (FP) PO SCH (21:56)
[2017-08-30] MEDS: THIAMINE HCL 100 MG TABLET (FP) PO SCH (21:56)
[2017-08-30] MEDS: INSULIN DETEMIR 100 UNITS/ML MDV SQ SCH (22:01)
[2017-08-30] MEDS: LATANOPROST 0.005% OPHTH SOLN 2.5ML BOTTLE OU SCH (22:31)
[2017-08-31] MEDS: METHADONE HCL 40 MG DISPERSABLE TABLET PO SCH (06:36)
[2017-08-31] MEDS: metFORMIN HCL 500 MG TABLET (FP) PO SCH ×2 (07:14→16:59)
[2017-08-31] MEDS: EMTRICITABINE/TENOFOV ALAFENAM (DESCOVY) TABLET PO SCH (10:29)
[2017-08-31] MEDS: PRENATAL VITAMINS W/ FOLIC ACID TABLET (FP) PO SCH (10:29)
[2017-08-31] MEDS: LISINOPRIL 20 MG TABLET (FP) PO SCH (10:29)
[2017-08-31] MEDS: DOLUTEGRAVIR SODIUM 50 MG TABLET PO SCH (10:29)
[2017-08-31] MEDS: ATORVASTATIN CA 40 MG TABLET (FP) PO SCH (21:39)
[2017-08-31] MEDS: THIAMINE HCL 100 MG TABLET (FP) PO SCH (21:39)
[2017-08-31] MEDS: LATANOPROST 0.005% OPHTH SOLN 2.5ML BOTTLE OU SCH (21:39)
[2017-08-31] MEDS: INSULIN DETEMIR 100 UNITS/ML MDV SQ SCH (21:41)
[2017-09-01] MEDS: METHADONE HCL 40 MG DISPERSABLE TABLET PO SCH (06:22)
[2017-09-01] MEDS: metFORMIN HCL 500 MG TABLET (FP) PO SCH ×2 (07:27→17:00)
[2017-09-01] MEDS: LISINOPRIL 20 MG TABLET (FP) PO SCH (10:24)
[2017-09-01] MEDS: EMTRICITABINE/TENOFOV ALAFENAM (DESCOVY) TABLET PO SCH (10:24)
[2017-09-01] MEDS: PRENATAL VITAMINS W/ FOLIC ACID TABLET (FP) PO SCH (10:24)
[2017-09-01] MEDS: DOLUTEGRAVIR SODIUM 50 MG TABLET PO SCH (10:24)
[2017-09-01] MEDS: ATORVASTATIN CA 40 MG TABLET (FP) PO SCH (22:07)
[2017-09-01] MEDS: THIAMINE HCL 100 MG TABLET (FP) PO SCH (22:07)
[2017-09-01] MEDS: LATANOPROST 0.005% OPHTH SOLN 2.5ML BOTTLE OU SCH (22:07)
[2017-09-01] MEDS: INSULIN DETEMIR 100 UNITS/ML MDV SQ SCH (22:09)
[2017-09-02] MEDS: METHADONE HCL 40 MG DISPERSABLE TABLET PO SCH (06:05)
[2017-09-02] MEDS: metFORMIN HCL 500 MG TABLET (FP) PO SCH ×2 (07:04→17:01)
[2017-09-02] MEDS: LISINOPRIL 20 MG TABLET (FP) PO SCH (10:07)
[2017-09-02] MEDS: EMTRICITABINE/TENOFOV ALAFENAM (DESCOVY) TABLET PO SCH (10:07)
[2017-09-02] MEDS: PRENATAL VITAMINS W/ FOLIC ACID TABLET (FP) PO SCH (10:07)
[2017-09-02] MEDS: DOLUTEGRAVIR SODIUM 50 MG TABLET PO SCH (10:07)
[2017-09-02] MEDS ORDERED: ATORVASTATIN CA 20 MG TABLET (FP) ONE (19:36)
[2017-09-02] MEDS: LATANOPROST 0.005% OPHTH SOLN 2.5ML BOTTLE OU SCH (21:18)
[2017-09-02] MEDS: ATORVASTATIN CA 40 MG TABLET (FP) PO SCH (21:18)
[2017-09-02] MEDS: THIAMINE HCL 100 MG TABLET (FP) PO SCH (21:18)
[2017-09-02] MEDS: INSULIN DETEMIR 100 UNITS/ML MDV SQ SCH (21:23)
[2017-09-03] MEDS: METHADONE HCL 40 MG DISPERSABLE TABLET PO SCH (06:46)
[2017-09-03] MEDS: metFORMIN HCL 500 MG TABLET (FP) PO SCH ×2 (07:01→16:41)
[2017-09-03] MEDS: LISINOPRIL 20 MG TABLET (FP) PO SCH (10:38)
[2017-09-03] MEDS: PRENATAL VITAMINS W/ FOLIC ACID TABLET (FP) PO SCH (10:38)
[2017-09-03] MEDS: EMTRICITABINE/TENOFOV ALAFENAM (DESCOVY) TABLET PO SCH (10:39)
[2017-09-03] MEDS: DOLUTEGRAVIR SODIUM 50 MG TABLET PO SCH (10:39)
[2017-09-03] MEDS ORDERED: INSULIN DETEMIR 100 UNITS/ML MDV SQ ONE (20:58)
[2017-09-03] MEDS: THIAMINE HCL 100 MG TABLET (FP) PO SCH (21:18)
[2017-09-03] MEDS: ATORVASTATIN CA 40 MG TABLET (FP) PO SCH (21:18)
[2017-09-03] MEDS: INSULIN DETEMIR 100 UNITS/ML MDV SQ SCH (21:18)
[2017-09-03] MEDS: LATANOPROST 0.005% OPHTH SOLN 2.5ML BOTTLE OU SCH (21:19)
[2017-09-04] MEDS: METHADONE HCL 40 MG DISPERSABLE TABLET PO SCH (06:22)
[2017-09-04] MEDS: metFORMIN HCL 500 MG TABLET (FP) PO SCH ×2 (07:03→17:14)
[2017-09-04] MEDS: PRENATAL VITAMINS W/ FOLIC ACID TABLET (FP) PO SCH (10:37)
[2017-09-04] MEDS: LISINOPRIL 20 MG TABLET (FP) PO SCH (10:37)
[2017-09-04] MEDS: DOLUTEGRAVIR SODIUM 50 MG TABLET PO SCH (10:38)
[2017-09-04] MEDS: EMTRICITABINE/TENOFOV ALAFENAM (DESCOVY) TABLET PO SCH (10:38)
[2017-09-04] MEDS: THIAMINE HCL 100 MG TABLET (FP) PO SCH (21:46)
[2017-09-04] MEDS: LATANOPROST 0.005% OPHTH SOLN 2.5ML BOTTLE OU SCH (21:46)
[2017-09-04] MEDS: ATORVASTATIN CA 40 MG TABLET (FP) PO SCH (21:46)
[2017-09-04] MEDS: INSULIN DETEMIR 100 UNITS/ML MDV SQ SCH (21:47)
[2017-09-05] MEDS: METHADONE HCL 40 MG DISPERSABLE TABLET PO SCH (06:05)
[2017-09-05] MEDS: metFORMIN HCL 500 MG TABLET (FP) PO SCH ×2 (08:25→16:58)
[2017-09-05] MEDS: PRENATAL VITAMINS W/ FOLIC ACID TABLET (FP) PO SCH (10:41)
[2017-09-05] MEDS: LISINOPRIL 20 MG TABLET (FP) PO SCH (10:41)
[2017-09-05] MEDS: DOLUTEGRAVIR SODIUM 50 MG TABLET PO SCH (10:41)
[2017-09-05] MEDS: EMTRICITABINE/TENOFOV ALAFENAM (DESCOVY) TABLET PO SCH (10:42)
[2017-09-05] MEDS: THIAMINE HCL 100 MG TABLET (FP) PO SCH (21:23)
[2017-09-05] MEDS: ATORVASTATIN CA 40 MG TABLET (FP) PO SCH (21:23)
[2017-09-05] MEDS: LATANOPROST 0.005% OPHTH SOLN 2.5ML BOTTLE OU SCH (21:24)
[2017-09-05] MEDS: INSULIN DETEMIR 100 UNITS/ML MDV SQ SCH (21:24)
[2017-09-06] MEDS: METHADONE HCL 40 MG DISPERSABLE TABLET PO SCH (06:11)
[2017-09-06] MEDS: metFORMIN HCL 500 MG TABLET (FP) PO SCH ×2 (07:41→16:49)
[2017-09-06] MEDS: PRENATAL VITAMINS W/ FOLIC ACID TABLET (FP) PO SCH (10:28)
[2017-09-06] MEDS: DOLUTEGRAVIR SODIUM 50 MG TABLET PO SCH (10:28)
[2017-09-06] MEDS: EMTRICITABINE/TENOFOV ALAFENAM (DESCOVY) TABLET PO SCH (10:28)
[2017-09-06] MEDS: LISINOPRIL 20 MG TABLET (FP) PO SCH (10:28)
[2017-09-06] MEDS: ATORVASTATIN CA 40 MG TABLET (FP) PO SCH (21:28)
[2017-09-06] MEDS: THIAMINE HCL 100 MG TABLET (FP) PO SCH (21:28)
[2017-09-06] MEDS: INSULIN DETEMIR 100 UNITS/ML MDV SQ SCH (21:29)
[2017-09-06] MEDS: LATANOPROST 0.005% OPHTH SOLN 2.5ML BOTTLE OU SCH (21:30)
[2017-09-07] MEDS: METHADONE HCL 40 MG DISPERSABLE TABLET PO SCH (06:22)
[2017-09-07] MEDS: metFORMIN HCL 500 MG TABLET (FP) PO SCH ×2 (07:45→16:48)
[2017-09-07] MEDS: PRENATAL VITAMINS W/ FOLIC ACID TABLET (FP) PO SCH (10:32)
[2017-09-07] MEDS: LISINOPRIL 20 MG TABLET (FP) PO SCH (10:32)
[2017-09-07] MEDS: DOLUTEGRAVIR SODIUM 50 MG TABLET PO SCH (10:33)
[2017-09-07] MEDS: EMTRICITABINE/TENOFOV ALAFENAM (DESCOVY) TABLET PO SCH (10:34)
[2017-09-07] MEDS: ATORVASTATIN CA 40 MG TABLET (FP) PO SCH (22:07)
[2017-09-07] MEDS: INSULIN DETEMIR 100 UNITS/ML MDV SQ SCH (22:07)
[2017-09-07] MEDS: THIAMINE HCL 100 MG TABLET (FP) PO SCH (22:07)
[2017-09-07] MEDS: LATANOPROST 0.005% OPHTH SOLN 2.5ML BOTTLE OU SCH (22:08)
[2017-09-08] MEDS: METHADONE HCL 40 MG DISPERSABLE TABLET PO SCH (06:27)
[2017-09-08] MEDS: metFORMIN HCL 500 MG TABLET (FP) PO SCH ×2 (07:30→17:04)
[2017-09-08] MEDS: LISINOPRIL 20 MG TABLET (FP) PO SCH (10:48)
[2017-09-08] MEDS: PRENATAL VITAMINS W/ FOLIC ACID TABLET (FP) PO SCH (10:48)
[2017-09-08] MEDS: DOLUTEGRAVIR SODIUM 50 MG TABLET PO SCH (10:48)
[2017-09-08] MEDS: EMTRICITABINE/TENOFOV ALAFENAM (DESCOVY) TABLET PO SCH (10:48)
[2017-09-08] MEDS: LATANOPROST 0.005% OPHTH SOLN 2.5ML BOTTLE OU SCH (22:06)
[2017-09-08] MEDS: THIAMINE HCL 100 MG TABLET (FP) PO SCH (22:06)
[2017-09-08] MEDS: ATORVASTATIN CA 40 MG TABLET (FP) PO SCH (22:07)
[2017-09-08] MEDS: INSULIN DETEMIR 100 UNITS/ML MDV SQ SCH (22:08)
[2017-09-09] MEDS: METHADONE HCL 40 MG DISPERSABLE TABLET PO SCH (06:26)
[2017-09-09] MEDS: metFORMIN HCL 500 MG TABLET (FP) PO SCH ×2 (07:11→16:52)
[2017-09-09] MEDS: LISINOPRIL 20 MG TABLET (FP) PO SCH (10:17)
[2017-09-09] MEDS: PRENATAL VITAMINS W/ FOLIC ACID TABLET (FP) PO SCH (10:17)
[2017-09-09] MEDS: EMTRICITABINE/TENOFOV ALAFENAM (DESCOVY) TABLET PO SCH (10:17)
[2017-09-09] MEDS: DOLUTEGRAVIR SODIUM 50 MG TABLET PO SCH (10:18)
[2017-09-09] MEDS: THIAMINE HCL 100 MG TABLET (FP) PO SCH (21:58)
[2017-09-09] MEDS: ATORVASTATIN CA 40 MG TABLET (FP) PO SCH (21:58)
[2017-09-09] MEDS: INSULIN DETEMIR 100 UNITS/ML MDV SQ SCH (22:02)
[2017-09-09] MEDS: LATANOPROST 0.005% OPHTH SOLN 2.5ML BOTTLE OU SCH (22:02)
[2017-09-10] MEDS: METHADONE HCL 40 MG DISPERSABLE TABLET PO SCH (06:18)
[2017-09-10] MEDS: metFORMIN HCL 500 MG TABLET (FP) PO SCH ×2 (07:10→16:48)
[2017-09-10] MEDS: PRENATAL VITAMINS W/ FOLIC ACID TABLET (FP) PO SCH (10:30)
[2017-09-10] MEDS: LISINOPRIL 20 MG TABLET (FP) PO SCH (10:30)
[2017-09-10] MEDS: EMTRICITABINE/TENOFOV ALAFENAM (DESCOVY) TABLET PO SCH (10:30)
[2017-09-10] MEDS: DOLUTEGRAVIR SODIUM 50 MG TABLET PO SCH (10:30)
[2017-09-10] MEDS: INSULIN DETEMIR 100 UNITS/ML MDV SQ SCH (21:49)
[2017-09-10] MEDS: THIAMINE HCL 100 MG TABLET (FP) PO SCH (21:49)
[2017-09-10] MEDS: ATORVASTATIN CA 40 MG TABLET (FP) PO SCH (21:49)
[2017-09-10] MEDS: LATANOPROST 0.005% OPHTH SOLN 2.5ML BOTTLE OU SCH (21:51)
[2017-09-11] MEDS: METHADONE HCL 40 MG DISPERSABLE TABLET PO SCH (06:20)
[2017-09-11] MEDS: metFORMIN HCL 500 MG TABLET (FP) PO SCH ×2 (07:22→16:55)
[2017-09-11] MEDS: LISINOPRIL 20 MG TABLET (FP) PO SCH (10:28)
[2017-09-11] MEDS: PRENATAL VITAMINS W/ FOLIC ACID TABLET (FP) PO SCH (10:28)
[2017-09-11] MEDS: EMTRICITABINE/TENOFOV ALAFENAM (DESCOVY) TABLET PO SCH (10:29)
[2017-09-11] MEDS: DOLUTEGRAVIR SODIUM 50 MG TABLET PO SCH (10:29)
[2017-09-11] MEDS: ATORVASTATIN CA 40 MG TABLET (FP) PO SCH (21:26)
[2017-09-11] MEDS: THIAMINE HCL 100 MG TABLET (FP) PO SCH (21:26)
[2017-09-11] MEDS: INSULIN DETEMIR 100 UNITS/ML MDV SQ SCH (21:27)
[2017-09-11] MEDS: LATANOPROST 0.005% OPHTH SOLN 2.5ML BOTTLE OU SCH (21:27)
[2017-09-12] MEDS: METHADONE HCL 40 MG DISPERSABLE TABLET PO SCH (06:37)
[2017-09-12] MEDS: metFORMIN HCL 500 MG TABLET (FP) PO SCH ×2 (06:47→17:13)
[2017-09-12] MEDS ORDERED: PT OWN MED DRAWER 7, Y5N ONE ×2 (09:22→22:05)
[2017-09-12] MEDS: PRENATAL VITAMINS W/ FOLIC ACID TABLET (FP) PO SCH (10:33)
[2017-09-12] MEDS: LISINOPRIL 20 MG TABLET (FP) PO SCH (10:33)
[2017-09-12] MEDS: DOLUTEGRAVIR SODIUM 50 MG TABLET PO SCH (10:34)
[2017-09-12] MEDS: EMTRICITABINE/TENOFOV ALAFENAM (DESCOVY) TABLET PO SCH (10:34)
[2017-09-12] MEDS: THIAMINE HCL 100 MG TABLET (FP) PO SCH (22:01)
[2017-09-12] MEDS: ATORVASTATIN CA 40 MG TABLET (FP) PO SCH (22:01)
[2017-09-12] MEDS: INSULIN DETEMIR 100 UNITS/ML MDV SQ SCH (22:02)
[2017-09-12] MEDS: LATANOPROST 0.005% OPHTH SOLN 2.5ML BOTTLE OU SCH (22:03)
[2017-09-13] MEDS: METHADONE HCL 40 MG DISPERSABLE TABLET PO SCH (06:38)
[2017-09-13] MEDS: metFORMIN HCL 500 MG TABLET (FP) PO SCH ×2 (06:39→17:13)
[2017-09-13] MEDS: IBUPROFEN 400 MG TABLET (FP) PO PRN (06:40)
[2017-09-13] MEDS ORDERED: PT OWN MED DRAWER 7, Y5N ONE ×2 (09:12→19:42)
[2017-09-13] MEDS: DOLUTEGRAVIR SODIUM 50 MG TABLET PO SCH (10:24)
[2017-09-13] MEDS: PRENATAL VITAMINS W/ FOLIC ACID TABLET (FP) PO SCH (10:24)
[2017-09-13] MEDS: LISINOPRIL 20 MG TABLET (FP) PO SCH (10:25)
[2017-09-13] MEDS: EMTRICITABINE/TENOFOV ALAFENAM (DESCOVY) TABLET PO SCH (10:25)
[2017-09-13] MEDS: THIAMINE HCL 100 MG TABLET (FP) PO SCH (22:06)
[2017-09-13] MEDS: LATANOPROST 0.005% OPHTH SOLN 2.5ML BOTTLE OU SCH (22:06)
[2017-09-13] MEDS: ATORVASTATIN CA 40 MG TABLET (FP) PO SCH (22:06)
[2017-09-13] MEDS: INSULIN DETEMIR 100 UNITS/ML MDV SQ SCH (22:07)
[2017-09-14] MEDS: METHADONE HCL 40 MG DISPERSABLE TABLET PO SCH (06:36)
[2017-09-14] MEDS: metFORMIN HCL 500 MG TABLET (FP) PO SCH ×2 (07:18→17:09)
[2017-09-14] MEDS: LISINOPRIL 20 MG TABLET (FP) PO SCH (10:26)
[2017-09-14] MEDS: PRENATAL VITAMINS W/ FOLIC ACID TABLET (FP) PO SCH (10:27)
[2017-09-14] MEDS: EMTRICITABINE/TENOFOV ALAFENAM (DESCOVY) TABLET PO SCH (10:28)
[2017-09-14] MEDS: DOLUTEGRAVIR SODIUM 50 MG TABLET PO SCH (10:28)
[2017-09-14] MEDS ORDERED: PT OWN MED DRAWER 7, Y5N ONE (10:28)
--- NOTE | 2017-09-14 12:44 | PN ---
Psychiatric Progress Note Vital Signs: Vital Signs Period Temp Pulse Resp BP Sys/Betancourt Pulse Ox Last 24 Hr 98.5 F 66-76 18-18 127-144/77-90 Date of Session: 09/14/17 Chief Complaint:: "Discharge" HPI: Pt. admitted to [facility] for alcohol dependence. ROS: Unremarkable. Current Medications: Active Medications Generic Name Dose Route Start Last Admin Trade Name Freq PRN Reason Stop Dose Admin Acetaminophen 650 mg 08/18/17 22:47 Tylenol - PO Q4H PRN FEVER Al Hydroxide/Mg Hydroxide 30 ml 08/18/17 22:47 Mylanta Oral Suspension - PO Q6H PRN DYSPEPSIA Albuterol Sulfate 2 puff 08/18/17 22:49 Ventolin Hfa Inhaler - IH Q4H PRN ASTHMA Atorvastatin Calcium 40 mg 08/19/17 22:00 09/13/17 22:06 Lipitor - PO 40 mg HS LOVE Administration Eucalyptus/Menthol/Phenol/Sorbitol 1 each 08/18/17 22:47 Cepastat Lozenge - MM Q4H PRN SORE THROAT Guaifenesin 10 ml 08/18/17 22:47 Robitussin Dm - PO Q6H PRN COUGH Ibuprofen 400 mg 08/18/17 22:47 09/13/17 06:40 Motrin - PO 400 mg Q6H PRN Administration Pain Level 4-6 Insulin Detemir 15 units 09/02/17 22:00 09/13/17 22:07 Levemir Vial SQ 15 units HS LOVE Administration Latanoprost 1 drop 08/19/17 22:00 09/13/17 22:06 Xalatan 0.005% Eye Drops - OU 1 drop HS LOVE Administration Lisinopril 20 mg 08/19/17 10:00 09/14/17 10:26 Prinivil PO 20 mg DAILY LOVE Administration Loperamide HCl 4 mg 08/18/17 22:47 Imodium - PO Q6H PRN DIARRHEA Magnesium Citrate 300 ml 08/18/17 22:47 Citroma - PO Q48H PRN CONSTIPATION Magnesium Hydroxide 30 ml 08/18/17 22:47 Milk Of Magnesia - PO DAILY PRN CONSTIPATION Metformin HCl 500 mg 08/19/17 07:00 09/14/17 07:18 Glucophage - PO 500 mg BIDAC LOVE Administration Methadone HCl 160 mg 02/13/18 06:00 Dolophine - PO 09/21/17 05:59 DAILY@0600 LOVE Multi-Ingredient Lotion 1 applic 08/27/17 12:09 Eucerin (Small Jar) - TP BID PRN DRY SKIN Multivit/Folic Acid/Iron 1 tab 08/19/17 10:00 09/14/17 10:27 Vitamins (Sjr) - PO 1 tab DAILY LOVE Administration Pseudoephedrine/Triprolidine 1 combo 08/18/17 22:47 Actifed - PO TID PRN NASAL CONGESTION Thiamine HCl 100 mg 08/19/17 22:00 09/13/17 22:06 Vitamin B1 - PO 100 mg HS LOVE Administration Medication(s) Change(s): No Current Side Effect: No Lab tests ordered: No Lab tests reviewed: Yes Provider note:: Pt. will complete this program on 09/15/2017. He has met his treatment goals and will continue to address his issues in outpatient treatment at the [facility] in [place]. He verbalized understanding of the consequences of his addiction and the need to continue positive changes in his lifestyle to maintain abstinence. Pt. is stable for discharge on 09/15/2017. Total face to face time:: 25 Mental Status Exam - Mental Status Exam Alert and Oriented to: Time, Place, Person Cognitive Function: Good Patient Appearance: Well Groomed Mood: Hopeful Affect: Mood Congruent Patient Behavior: Appropriate, Cooperative Speech Pattern: Appropriate Voice Loudness: Normal Thought Process: Goal Oriented Thought Disorder: Not Present Hallucinations: Denies Suicidal Ideation: Denies Homicidal Ideation: Denies Insight/Judgement: Good Sleep: Well Appetite: Good Muscle strength/Tone: Mild Hypertonicity Gait/Station: Other (Pt. uses a wheelchair to ambulate.) Psychiatric Treatment Plan - Problem List (1) Alcohol dependence Current Visit: Yes (2) Opioid dependence on agonist therapy Current Visit: Yes (3) Nicotine dependence Current Visit: No Qualifiers: Nicotine product type: cigarettes Substance use status: in withdrawal Qualified Code(s): F17.213 - Nicotine dependence, cigarettes, with withdrawal
--- NOTE | 2017-09-14 14:40 | PN ---
S Progress Note Note: f/u visit re:patient c/o of pain on left hip as per nurse. Patient was evaluated. Currently ambulating with a cane. Denies pain 0/10, no acute distress. Continue to monitor. Patient advise to follow up with PCP for PT referral for unsteady gait.
[2017-09-14] MEDS: THIAMINE HCL 100 MG TABLET (FP) PO SCH (21:36)
[2017-09-14] MEDS: INSULIN DETEMIR 100 UNITS/ML MDV SQ SCH (21:36)
[2017-09-14] MEDS: ATORVASTATIN CA 40 MG TABLET (FP) PO SCH (21:36)
[2017-09-14] MEDS: LATANOPROST 0.005% OPHTH SOLN 2.5ML BOTTLE OU SCH (21:37)
[2017-09-15] MEDS ORDERED: METHADONE HCL 40 MG DISPERSABLE TABLET PO SCH (06:00)
[2017-09-15] MEDS: metFORMIN HCL 500 MG TABLET (FP) PO SCH (07:08)
[2017-09-15 07:14] VITALS: BP 155/92; PULSE 74; TEMP 98.1
[2017-09-15] MEDS: LISINOPRIL 20 MG TABLET (FP) PO SCH (09:06)
[2017-09-15] MEDS: PRENATAL VITAMINS W/ FOLIC ACID TABLET (FP) PO SCH (09:07)
[2017-09-15] MEDS ORDERED: PT OWN MED DRAWER 7, Y5N ONE (09:08)
[2017-09-15] MEDS: DOLUTEGRAVIR SODIUM 50 MG TABLET PO SCH (09:09)
[2017-09-15] MEDS: EMTRICITABINE/TENOFOV ALAFENAM (DESCOVY) TABLET PO SCH (09:09)
== END 2017-09-15 09:10 | disposition home or self-care (01) | DRG 772 ==
LOC: YASAS 18:18 → Y3W 22:06
PROVIDERS: ADMIT Psychiatry & Neurology Psychiatry; ATTEND Psychiatry & Neurology Psychiatry
PROC: HZ42ZZZ Group Counseling for Substance Abuse Treatment, Cognitive-Behavioral (ICD-10-PCS; principal; 2017-08-18)
DX: F10.20 Alcohol dependence, uncomplicated (principal); F11.20 Opioid dependence, uncomplicated; F17.213 Nicotine dependence, cigarettes, with withdrawal; E11.65 Type 2 diabetes mellitus with hyperglycemia; I10 Essential (primary) hypertension; J45.20 Mild intermittent asthma, uncomplicated; H40.9 Unspecified glaucoma; Z21 Asymptomatic human immunodeficiency virus [HIV] infection status; E78.5 Hyperlipidemia, unspecified; Z79.4 Long term (current) use of insulin
CPT/HCPCS: 82962